=== PATIENT | male | born 1950 | race Caucasian/White ===

== ENCOUNTER 2019-02-20 07:39 | Day surgery (SDC) | payer BC ==
[2019-02-19 11:53] VITALS: BMI 44.0
[2019-02-20] MEDS ORDERED: Lidocaine 1% w/Epinephrine 1:100K 20 ML VIAL ONE (07:51)
[2019-02-20] MEDS ORDERED: Bacitracin Zinc Ointment 30 gm TUBE ONE (07:52)
[2019-02-20] MEDS ORDERED: Oxymetazoline HCl 0.05% ( 15 ML ) ONE ×3 (07:52→11:16)
[2019-02-20 08:24] LABS: Hemoglobin 14.7 g/dL (14.0-18.0)
[2019-02-20 08:40] LABS: Anion Gap 11 mmol/L (10-20); BUN (Urea Nitrogen) 15 mg/dL (8.4-25.7); Calc. Creatinine Clearance 159 mL/min (70-130); Carbon Dioxide 29 mmol/L (23-31); Chloride 102 mmol/L (98-107); Estimated GFR-MDRD 79; Glucose 144 mg/dL (80-115); Potassium 4.7 mmol/L (3.5-5.1); Sodium 137 mmol/L (136-145)
[2019-02-20] MEDS ORDERED: Fentanyl 100 MCG/2 ML VIAL ONE (09:33)
--- NOTE | 2019-02-21 11:03 | OP ---
DATE OF PROCEDURE: 02/20/2019 PREOPERATIVE DIAGNOSES: Septal deviation, turbinate hypertrophy, and nasal valve collapse causing nasal congestion. POSTOPERATIVE DIAGNOSES: Septal deviation, turbinate hypertrophy, and nasal valve collapse causing nasal congestion. PROCEDURES PERFORMED: Septoplasty, bilateral submucosal reduction of inferior turbinate, and bilateral nasal valve reconstruction. CONSENT: Procedure, benefits, and risks including, bleeding, infection, injury, allergic reaction from anesthesia, surgery requiring revision or repair, persistent nasal congestion, possible change in the shape of the nose or structure of the nose, and possible septal perforation or saddle nose deformity was discussed with the patient. A consent form was signed and witnessed, and a paper copy of the consent form was available for review in the chart. INDICATIONS FOR PROCEDURE: This is a male patient with a history of obstructive sleep apnea and obesity, this being treated with CPAP and having difficulty with his nasal congestion. He presented to clinic with difficulty breathing through his nose and anatomic obstruction of the deviated septum as well as turbinate hypertrophy and nasal valve collapse was noted in clinic with improvement with modified Britt and with decongestion. TREE CHIPPER: None. FINDINGS: Deviated septum both posterior to the left and also with the right septal spur, very enlarged turbinates, and collapse of the nasal valve. DESCRIPTION OF PROCEDURE: The patient was brought to the operating room and laid supine on the operating room table. General endotracheal anesthesia was administered. A bed was elevated with head elevated to 30 degrees to reduce bleeding risk. The septum was infiltrated bilaterally 1% lidocaine with 1:100, 000 epinephrine. Six cottonoids soaked with 1:100,000 epinephrine were placed in the nasal cavity bilateral through each side. The patient was then prepped and draped in sterile fashion. The nose was evaluated endoscopically bilaterally and there was significant nasal deviation and septal deviation. At this point in time, a left Potlatch incision was made followed by elevation of the mucoperichondrial flap. The bony cartilaginous junction was then disarticulated and the opposite side was also elevated. A large bony spur along the floor was taken down on the right side with combination of Kiara and suction elevator and the cartilaginous deviation was then removed. There was a posterior bony septal deviation that was removed with double action scissors cutting above and below the deviation and Kiara removing the deformed portions. The healthy cartilage was set aside and saline for later use. Next, the nasal cavity was evaluated bilaterally and septal deviation was corrected at this point with significant 2 cm anterior strut and 1.5 cm dorsal strut to maintain support of the nose. At this point, the attention was turned to the bilateral inferior turbinate reductions, which were performed. A stab incision was made with the use of turbinate blade and then used to elevate the mucosa starting on the left side and reduced the size of the inferior turbinates and then moved to the right side with an oscillating debrider and so there was a pocket to remove the soft tissue from inside of the inferior turbinates on both sides. The inferior turbinates were then lateralized on both sides and the opening was cauterized with suction cautery. Next, the nasal cavity was irrigated and suctioned and the small portion of straight cartilage was then replaced between the mucoperichondrial flaps of the septum and Demar needle with 4-0 chromic suture was then used to make a quilting stitch back and forth to sew the septum in place. The nasal valves were then evaluated and identified at the level of the collapse. A small implant was then fashioned and then placed in the left nasal sidewall anchoring on the piriform of the nasal bone in order to maintain dilation and then same procedure was performed on the right side as well. At this point, the Potlatch incision was closed with 4-0 chromic interrupted sutures and Castellon splints coated in bacitracin were then inserted into the nose and a 2-0 silk suture was then used to hold them in place. There was no bleeding seen in the nasal cavity and nasopharynx was irrigated and suctioned thoroughly and the patient was turned over to Anesthesia for emergence. FLUIDS: Please Anesthesia report. ESTIMATED BLOOD LOSS: 30 mL. DRAINS: No drains. SPECIMENS: No specimens. COMPLICATIONS: No complications. Job ID: [id number] [facility]
--- NOTE | 2019-02-21 16:47 | EKG ---
Test Reason : PREOP Blood Pressure : / mmHG Vent. Rate : 080 BPM Atrial Rate : 080 BPM P-R Int : 154 ms QRS Dur : 092 ms QT Int : 398 ms P-R-T Axes : 063 -34 100 degrees QTc Int : 459 ms Normal sinus rhythm Left axis deviation T wave abnormality, consider lateral ischemia Abnormal ECG When compared with ECG of 18-OCT-2010 14:38, Premature atrial complexes are no longer Present T wave inversion now evident in Lateral leads Confirmed by DR. Marcus ARMSTRONG ([id number]) on 02/21/2019 4:46:42 PM Referred By: YULI Confirmed By:DR. Marcus ARMSTRONG
== END 2019-02-20 13:35 | disposition home or self-care (01) ==
LOC: SDC 07:39
PROVIDERS: ATTEND Student in an Organized Health Care Education/Training Program
PROC: 09QM0ZZ Repair Nasal Septum, Open Approach (ICD-10-PCS; principal; 2019-02-20)
PROC: 09TL7ZZ Resection of Nasal Turbinate, Via Natural or Artificial Opening (ICD-10-PCS; principal; 2019-02-20)
PROC: 09SM0ZZ Reposition Nasal Septum, Open Approach (ICD-10-PCS; principal; 2019-02-20)
DX: J34.2 Deviated nasal septum (principal); J34.3 Hypertrophy of nasal turbinates; J34.89 Other specified disorders of nose and nasal sinuses; G47.33 Obstructive sleep apnea (adult) (pediatric); E78.00 Pure hypercholesterolemia, unspecified; I10 Essential (primary) hypertension; E11.9 Type 2 diabetes mellitus without complications; G89.29 Other chronic pain; E66.9 Obesity, unspecified; Z68.41 Body mass index [BMI] 40.0-44.9, adult; Z79.4 Long term (current) use of insulin; Z79.82 Long term (current) use of aspirin; Z79.899 Other long term (current) drug therapy; Z98.1 Arthrodesis status; Z98.890 Other specified postprocedural states
CPT/HCPCS: 36415; 36416; 80048; 85014; 85018; 93005; 93010; J2001; J3010